=== PATIENT | female | born 1970 | race African-American/Black ===

== ENCOUNTER 2021-04-30 03:54 | Emergency (ER) | payer MEDICAID ==
[~2021-04-30] VITALS: Ht 167.6 cm; Wt 161.5 kg
[2021-04-30] MEDS ORDERED: GEODON80 MG PO (04:04)
[2021-04-30] MEDS ORDERED: LISINOPRIL20 MG PO (04:04)
[2021-04-30 04:40] VITALS: BP 128/80
== END 2021-04-30 04:43 | disposition home or self-care (01) ==
LOC: M.ERS 03:54
DX: J02.9 Acute pharyngitis, unspecified (principal); R09.81 Nasal congestion; I10 Essential (primary) hypertension; F20.9 Schizophrenia, unspecified; F17.210 Nicotine dependence, cigarettes, uncomplicated; Z79.899 Other long term (current) drug therapy